=== PATIENT | female | born 1965 | race Caucasian/White ===

== ENCOUNTER → 2019-08-14 14:16 | Outpatient (CLI) | payer BC ==
--- NOTE | 2019-08-18 11:10 | ST ---
PATIENT:LONA MAYS MEDICAL RECORD: [id number] SEX: F LOCATION:[facility] ORDER #: ADMISSION DATE: 08/14/19 AGE OF PATIENT: 54 REFERRING PHYSICIAN: INTERPRETING PHYSICIAN: MARK TEMPLETON MD DATE OF SERVICE: 08/14/2019 EXERCISE STRESS TEST INDICATIONS: Angina and hypertension. She was exercised for 3 minutes, terminated due to extreme shortness of breath, fatigue, and poor exercise tolerance. She did not achieve 85% max target heart rate response. There were no EKG changes. OVERALL IMPRESSION: Inadequate. Exercise stress test secondary to the patient's inability to exercise. Would suggest repeating this with Lexiscan and Cardiolite imaging. TRANSINT:[id number] Voice Confirmation ID: [id number] DOCUMENT ID: [id number] MARK TEMPLETON MD at 1110 CC: [id number] DICTATION DATE: 08/15/19 1009 TEACHER: 08/16/19 0201 DEP CLI 08/14/19 [id number] [place] [address]
== END | disposition home or self-care (01) ==
LOC: D.HCCARDIO 08-05 08:30
PROVIDERS: ATTEND Internal Medicine Interventional Cardiology
DX: I20.9 Angina pectoris, unspecified (principal)